=== PATIENT | male | born 1930 | race Caucasian/White ===

== ENCOUNTER 2017-03-04 10:10 | Inpatient (IN) | payer BC ==
[~2017-03-04] VITALS: Ht 175.3 cm; Wt 57.4 kg
[~2017-03-04 10:10] MED LIST: ALFU10TA PO; AMLO10TA2 PO; ASPI-496 PO; ASPI-650 PO; ATOR10TA9 PO; CALC0.25 PO; DARB100V SQ; DOCU-30 PO; ERGO500017 PO; FA/V1TAB2 PO; FERR324T8 PO; FERR325T16 PO; HYDR-3138 PO; METO25TA35 PO; METO50TA82 PO; POLY17PO5 PO; SENN1TAB7 PO
[2017-03-04] MEDS ORDERED: AMLO10TA2 PO (10:28)
[2017-03-04] MEDS ORDERED: ASPIRIN 81 MG TABLET CHEW PO ONE (10:30)
[2017-03-04] MEDS ORDERED: SODIUM CHLORIDE FLUSH 10ML SYR IVF ONE (10:30)
[2017-03-04] MEDS ORDERED: ASPIRIN 81 MG TABLET CHEW ONE (10:34)
[2017-03-04 10:47] LABS: BLOOD UREA NITROGEN 51 mg/dL (7-18)
[2017-03-04 11:04] LABS: ANISOCYTOSIS 1+; HYPOCHROMIA 1+; OVALOCYTES 1+
[2017-03-04] MEDS ORDERED: EPINEPHRINE 1 MG/ML, 1ML ONE (11:10)
[2017-03-04] MEDS ORDERED: EPINEPHRINE SYRINGE 0.1 MG/ML, 10ML ONE (11:11)
[2017-03-04] MEDS ORDERED: CALCIUM CHLORIDE 13.6 MEQ/10 ML ONE (11:11)
[2017-03-04] MEDS ORDERED: AMIODARONE 50 MG/ML, 3ML ONE (11:11)
[2017-03-04] MEDS ORDERED: SODIUM CHLORIDE FLUSH 10ML SYR IVF PRN (12:30)
[2017-03-04 13:30] VITALS: BP 108/66
[2017-03-04] MEDS ORDERED: FENTANYL PF 100 MCG/2ML ONE (13:56)
[2017-03-04] MEDS ORDERED: MIDAZOLAM 1 MG/ML, 5ML ONE (13:56)
[2017-03-04] MEDS ORDERED: BIVALIRUDIN 250 MG ONE (13:57)
[2017-03-04] MEDS ORDERED: HEPARIN 1,000 UNITS/ML, 10ML ONE (13:57)
[2017-03-04] MEDS ORDERED: VERAPAMIL 2.5 MG/ML, 2ML ONE (13:57)
[2017-03-04] MEDS ORDERED: LIDOCAINE 2%, 20ML ONE (13:57)
[2017-03-04] MEDS ORDERED: CLOPIDOGREL 300 MG TABLET ONE (15:11)
[2017-03-04 16:07] VITALS: BP 152/74
[2017-03-04] MEDS ORDERED: morphine SULFATE 10 MG/ML, 1ML IVPush PRN (18:30)
[2017-03-04 20:17] LABS: IS PT STATUS REG ER OR PRE ER? NO
[2017-03-04 21:00] VITALS: BP 100/64
[2017-03-04] MEDS: METOPROLOL TARTRATE 25 MG TABLET PO SCH (21:00)
[2017-03-04 22:55] VITALS: BP 98/67
[2017-03-04] MEDS: ATORVASTATIN 10 MG TABLET PO SCH (22:56)
[2017-03-04] MEDS: ACETAMINOPHEN 325 MG TABLET PO PRN ×2 (23:43→23:45)
[2017-03-05 00:56] LABS: IS PT STATUS REG ER OR PRE ER? NO
[2017-03-05 03:43] VITALS: BP 115/71
[2017-03-05] MEDS: ACETAMINOPHEN 325 MG TABLET PO PRN ×2 (03:54→23:00)
[2017-03-05 06:15] LABS: BLOOD UREA NITROGEN 37 mg/dL (7-18)
[2017-03-05 09:13] VITALS: BP 106/68
[2017-03-05] MEDS: ASPIRIN 81 MG TABLET EC PO SCH (09:15)
[2017-03-05] MEDS: CLOPIDOGREL 75 MG TABLET PO SCH (09:15)
[2017-03-05] MEDS: TAMSULOSIN 0.4 MG CAP.ER.24H PO SCH (09:16)
[2017-03-05] MEDS: METOPROLOL TARTRATE 25 MG TABLET PO SCH ×2 (09:16→21:00)
[2017-03-05] MEDS ORDERED: POLYETHYLENE GLYCOL 17 GM PACKET PO PRN (12:00)
[2017-03-05] MEDS: DOCUSATE 100 MG CAPSULE PO SCH ×2 (12:03→21:00)
[2017-03-05 14:42] VITALS: BP 103/67
[2017-03-05 17:30] VITALS: BP 165/79
[2017-03-05 17:34] VITALS: BP 159/80
[2017-03-05 18:42] VITALS: BP 93/58
[2017-03-05] MEDS: ATORVASTATIN 10 MG TABLET PO SCH (21:54)
[2017-03-06 02:09] VITALS: BP 108/70
[2017-03-06 06:19] LABS: BLOOD UREA NITROGEN 49 mg/dL (7-18)
[2017-03-06 06:43] VITALS: BP 110/70
[2017-03-06] MEDS: DOCUSATE 100 MG CAPSULE PO SCH ×2 (09:00→19:38)
[2017-03-06] MEDS: TAMSULOSIN 0.4 MG CAP.ER.24H PO SCH (09:33)
[2017-03-06] MEDS: METOPROLOL TARTRATE 25 MG TABLET PO SCH ×2 (09:33→19:38)
[2017-03-06] MEDS: ASPIRIN 81 MG TABLET EC PO SCH (09:33)
[2017-03-06] MEDS: CLOPIDOGREL 75 MG TABLET PO SCH (09:33)
[2017-03-06 13:09] VITALS: BP 98/64
[2017-03-06 19:35] VITALS: BP 87/62
[2017-03-06] MEDS: ATORVASTATIN 10 MG TABLET PO SCH (19:38)
[2017-03-06 19:48] LABS: HEP B SURF. AB < 3.1 mIU/mL (0.0-10.0)
[2017-03-06] MEDS ORDERED: EPINEPHRINE SYRINGE 0.1 MG/ML, 10ML ONE (21:30)
[2017-03-06] MEDS ORDERED: CODE BLUE RESPONSE XX ONE ×2 (21:30→22:30)
[2017-03-06] MEDS ORDERED: AMIODARONE 50 MG/ML, 3ML ONE (21:55)
== END 2017-03-06 22:00 | disposition expired | DRG 246 ==
LOC: ED 12:18 → EDIP 12:19 → ED 12:30 → 5SO 13:27 → CCU 03-06 21:50
PROVIDERS: ADMIT Internal Medicine; ATTEND Internal Medicine
PROC: 027034Z Dilation of Coronary Artery, One Artery with Drug-eluting Intraluminal Device, Percutaneous Approach (ICD-10-PCS; principal; 2017-03-04)
PROC: 4A023N7 Measurement of Cardiac Sampling and Pressure, Left Heart, Percutaneous Approach (ICD-10-PCS; 2017-03-04)
PROC: B2111ZZ Fluoroscopy of Multiple Coronary Arteries using Low Osmolar Contrast (ICD-10-PCS; 2017-03-04)
PROC: 5A1D60Z (ICD-10-PCS; 2017-03-04)
PROC: 5A12012 Performance of Cardiac Output, Single, Manual (ICD-10-PCS; 2017-03-06)
PROC: 0BH17EZ Insertion of Endotracheal Airway into Trachea, Via Natural or Artificial Opening (ICD-10-PCS; 2017-03-06)
PROC: 5A1935Z Respiratory Ventilation, Less than 24 Consecutive Hours (ICD-10-PCS; 2017-03-06)
DX: I21.4 Non-ST elevation (NSTEMI) myocardial infarction (principal); N18.6 End stage renal disease; I13.11 Hypertensive heart and chronic kidney disease without heart failure, with stage 5 chronic kidney disease, or end stage renal disease; E44.1 Mild protein-calorie malnutrition; Z68.1 Body mass index [BMI] 19.9 or less, adult; Z99.2 Dependence on renal dialysis; N40.0 Benign prostatic hyperplasia without lower urinary tract symptoms; J44.9 Chronic obstructive pulmonary disease, unspecified; I71.4 Abdominal aortic aneurysm, without rupture; I27.2 Other secondary pulmonary hypertension; D69.6 Thrombocytopenia, unspecified; E78.5 Hyperlipidemia, unspecified; D63.1 Anemia in chronic kidney disease; H91.90 Unspecified hearing loss, unspecified ear; E87.5 Hyperkalemia; S30.1XXA Contusion of abdominal wall, initial encounter; I25.10 Atherosclerotic heart disease of native coronary artery without angina pectoris; W19.XXXA Unspecified fall, initial encounter; E55.9 Vitamin D deficiency, unspecified; Z91.81 History of falling; Z88.0 Allergy status to penicillin; Z87.891 Personal history of nicotine dependence; Z82.49 Family history of ischemic heart disease and other diseases of the circulatory system; Y93.89 Activity, other specified; Y92.89 Other specified places as the place of occurrence of the external cause; Y99.8 Other external cause status; Z79.02 Long term (current) use of antithrombotics/antiplatelets; Z79.899 Other long term (current) drug therapy; I35.0 Nonrheumatic aortic (valve) stenosis; I49.01 Ventricular fibrillation
CPT/HCPCS: 36415; 71010; 80048; 80061; 80069; 82040; 83880; 84443; 84484; 85025; 85610; 85730; 86705; 86706; 87340; 92950; 93005; 93306; 93454; 93880; 99152; 99153; 99156; 99157; C1760; C1894; C9600; J0171; J0583; J1644; J2250; J3010; J3490; C1725; C1769; C1874; C1887; J0282; Q9967